=== PATIENT | female | born 1965 | race Caucasian/White ===

== ENCOUNTER 2022-05-27 16:15 | Emergency (ER) | payer SELFPAY ==
[2022-05-27] MEDS ORDERED: diphenhydrAMINE 25 MG Cap PO ONE (19:36)
[2022-05-27] MEDS ORDERED: Dexamethasone 10 MG/ML SDV IM ONE (19:36)
== END 2022-05-27 21:09 | disposition home or self-care (01) ==
LOC: JD.ED 16:15
DX: B86 Scabies (principal)
CPT/HCPCS: 96372; 99282; A9270; J1100